=== PATIENT | male | born 1960 | race Hispanic/Latino ===

== ENCOUNTER 2018-05-01 20:39 | Inpatient (IN) | payer OTHER ==
[2018-05-01] MEDS ORDERED: NITRO-BID 2% TP ONE (20:55)
[2018-05-01] MEDS ORDERED: ZOFRAN IV ONE (20:55)
[2018-05-01] MEDS ORDERED: MORPHINE IV ONE (20:56)
--- NOTE | 2018-05-01 21:01 | Emergency Department Report ---
HPI - General Time Seen by Provider: 05/01/18 20:44 - HPI HPI: Room 17 The patient is a 57-year-old male presenting with a chief complaint of chest pain. The patient is currently at [facility] under 1013 for suicidal ideation/bipolar disorder. The patient states today between 17:30-18:30 he had "really bad heartburn". The patient states he felt a burning pain from the base of his neck to the xiphoid process. The patient states that last proximal 0.5 hours and then resolved. The patient states that 19:00 he then developed left-sided chest pain was throbbing in nature. Patient states he then developed pain in his left upper extremity and low back. The patient states his pain has been constant but improving since he was administered aspirin. The patient missed a shortness of breath, nausea/vomiting and diaphoresis with this pain. The patient was subsequent with transported to the ED with a sitter for further evaluation. The patient is his pain score of 6/10. The patient states he's never had a stress test or cardiac catheterization Location: [See above] Duration: [See above] Quality: Throbbing Severity: 6/10 Modifying factors: [see above] Context: [see above] Mode of transportation: [not driving] ED Past Medical Hx - Past Medical History Hx Hypertension: Yes Hx Diabetes: Yes Hx Seizures: Yes - Surgical History Hx Appendectomy: Yes Additional Surgical History: PEG tube placement and removal - Family History Family history: no significant - Social History Smoking Status: Current Every Day Smoker (1/2 pack per day) Substance Use Type: Methamphetamines (last used 1.5 weeks ago (smokes)) ED Review of Systems ROS: Stated complaint: CHEST PAIN Other details as noted in HPI Constitutional: diaphoresis Eyes: denies: eye pain ENT: denies: throat pain Respiratory: shortness of breath Cardiovascular: chest pain Endocrine: no symptoms reported Gastrointestinal: nausea, vomiting Genitourinary: denies: dysuria Musculoskeletal: back pain Neurological: headache Physical Exam - Physical Exam Physical Exam: GENERAL: The patient is well-developed well-nourished male lying on stretcher not appear to be in acute distress. [] HEENT: Normocephalic. Atraumatic. Extraocular motions are intact. Patient has moist mucous membranes. NECK: Supple. Trachea midline CHEST/LUNGS: Clear to auscultation. There is no respiratory distress noted. HEART/CARDIOVASCULAR: Regular. There is no tachycardia. There is no gallop rub or murmur. ABDOMEN: Abdomen is soft, nontender. Patient has normal bowel sounds. There is no abdominal distention. SKIN: There is no rash. There is no edema. There is no diaphoresis. NEURO: The patient is awake, alert, and oriented. The patient is cooperative. The patient has normal speech MUSCULOSKELETAL: There is no evidence of acute injury. ED Medical Decision Making - Lab Data Result diagrams: 05/01/18 21:23 05/01/18 21:23 Laboratory Tests 05/01/18 05/01/18 21:23 21:23 WBC 10.8 RBC 6.23 H Hgb 12.5 Hct 39.4 MCV 63 L MCH 20 L MCHC 32 RDW 16.3 H Plt Count 216 Sodium 134 L Potassium 4.1 Chloride 97.7 L Carbon Dioxide 22 Anion Gap 18 BUN 17 Creatinine 0.6 L Estimated GFR > 60 BUN/Creatinine Ratio 28 Glucose 152 H Calcium 9.1 Total Creatine Kinase 62 CK-MB (CK-2) 2.6 CK-MB (CK-2) Rel Index 4.1 H Troponin T < 0.010 - EKG Data -: EKG Interpreted by Me EKG shows normal: sinus rhythm Rate: normal - EKG Data When compared to previous EKG there are: previous EKG unavailable Interpretation: nonspecific ST-T wave joaquín (T-wave inversion in lead 3) - Radiology Data Radiology results: image reviewed (chest x-ray) interpreted by me: Chest x-ray-no focal infiltrates, no pneumothorax - Differential Diagnosis ACS, GERD, pericarditis Critical care attestation.: If time is entered above; I have spent that time in minutes in the direct care of this critically ill patient, excluding procedure time. ED Disposition Clinical Impression: Chest pain Disposition: OP ADMIT IP TO THIS HOSP Is pt being admited?: Yes Does the pt Need Aspirin: Yes Condition: Fair Instructions: Chest Pain (ED) Referrals: PRIMARY CARE,MD [Primary Care Provider] - 3-5 Days Time of Disposition: 22:05 (hospitalist paged (Dr. Candace Wesley))
[2018-05-01 21:51] LABS: Hematocrit 39.4 % (35.5-45.6); Hemoglobin 12.5 gm/dl (11.8-15.2); Mean Corpuscular HGB Conc 32 % (32-34); Platelet Count 216 K/mm3 (140-440); Red Blood Count 6.23 M/mm3 (3.65-5.03); Red Cell Distribution Width 16.3 % (13.2-15.2)
[2018-05-01 21:54] LABS: Creatine Kinase MB 2.6 ng/mL (0.0-4.0)
[2018-05-01 21:55] LABS: BUN/Creatinine Ratio 28; Blood Urea Nitrogen 17 mg/dL (9-20); Calcium 9.1 mg/dL (8.4-10.2); Hemolysis Index 11; Mean Corpuscular Hemoglobin 20 pg (28-32); Mean Corpuscular Volume 63 fl (84-94)
--- NOTE | 2018-05-01 22:26 | XRay Report ---
FINAL REPORT EXAM: XR CHEST 1V AP HISTORY: chest pain TECHNIQUE: AP portable view of the chest PRIORS: None. FINDINGS: Lines, tubes, and devices: N/A Lungs and pleura: Trachea is normal in position. Lungs are clear of infiltrate, pleural effusion, vascular congestion, or pneumothorax. Cardiomediastinal silhouette: Cardiac and mediastinal silhouettes are unremarkable. Other: Bony structures are intact. IMPRESSION: No acute cardiopulmonary process seen.
[2018-05-01 22:31] LABS: Basophils % (Manual) 0 % (0.0-1.8); Total Cells Counted 100
[2018-05-01 22:32] LABS: Hypochromasia 2+; Ovalocytes Few
--- NOTE | 2018-05-01 23:55 | History and Physical Report ---
History of Present Illness Date of examination: 05/01/18 History of present illness: This is a 57-year-old man with a history of hypertension, diabetes, seizure, bipolar was sent to the emergency room today from [place] for evaluation of chest pain. Pain is in the epigastric and left chest which she described as throbbing pain, constant, intensity 5/10, radiating to the left arm. Symptoms were relieved with nitroglycerin. Admits to nausea and vomiting, shortness of breath, diaphoresis, no palpitation. He never had a stress test. Admits to methamphetamine use Review of systems Constitutional: no weight loss, chills, fever Ears, eyes, nose, mouth and throat: no nasal congestion, no nasal discharge, no sinus pressure, no vision change, no red eye. Neck: No neck pain or rigidity. Cardiovascular: no palpitations Respiratory: no cough Gastrointestinal: no abdominal pain hematochezia Genitourinary : no frequency , no hematuria Musculoskeletal: no joint swelling or muscle ache Integumentary: no rash, no pruritis Neurological: no parathesias, no numbness, no focal weakness Endocrine: no cold or heat intolerance, no polyuria or polydipsia Hematologic/Lymphatic: no easy bruising, no easy bleeding, no gland swelling Allergic/Immunologic: no urticaria, no angioedema. PAST MEDICAL HISTORY:hypertension, diabetes, seizure, bipolar PAST SURGICAL HISTORY: Appendectomy SOCIAL HISTORY: Smoke a pack a day, methamphetamine use, no alcohol FAMILY HISTORY: Hypertension Medications and Allergies Allergies Allergy/AdvReac Type Severity Reaction Status Date / Time barbital Allergy Unknown Verified 05/01/18 21:20 Active Meds: Active Medications Enoxaparin Sodium (Lovenox) 30 mg SUB-Q QDAY SAVITA Exam - Physical Exam Narrative exam: Gen. appearance: Patient lying in bed, no apparent distress HEENT: Normocephalic, atraumatic, pupils equally round and reactive to light, extraocular movement intact, and no sclericterus,. No JVD or thyromegaly or nodule,neck supple, no carotid bruit ,mucous membranes moist, no exudate or erythema Heart: S1, S2, regular rate and rhythm Lungs: Clear bilaterally, breathing comfortable Abdomen: Positive bowel sounds, non-tender, nondistended, no organomegaly Extremity:no edema cyanosis, clubbing Skin: no rash, dry, warm Neuro: Oriented 3, cranial nerves II-12 intact, speech is fluent, motor and sensory intact - Constitutional Vitals: Temp Pulse Resp BP Pulse Ox 98 F 92 H 14 124/82 99 05/01/18 21:03 05/01/18 23:30 05/01/18 23:30 05/01/18 23:30 05/01/18 22:50 Results - Labs CBC & Chem 7: 05/01/18 21:23 05/01/18 21:23 Labs: Abnormal lab results 05/01/18 05/01/18 05/01/18 Range/Units 21:23 21:23 21:23 RBC 6.23 H (3.65-5.03) M/mm3 MCV 63 L (84-94) fl MCH 20 L (28-32) pg RDW 16.3 H (13.2-15.2) % Sodium 134 L (137-145) mmol/L Chloride 97.7 L (98-107) mmol/L Creatinine 0.6 L (0.8-1.5) mg/dL Glucose 152 H (75-100) mg/dL CK-MB (CK-2) Rel Index 4.1 H (0-4) Phenytoin 6.7 L (10.0-20.0) ug/mL - Imaging and Cardiology EKG: image reviewed Chest x-ray: report reviewed Assessment and Plan Assessment Chest pain, rule out ACS Hypertension Diabetes Seizure and bipolar Plan Admit to medicine Check cardiac enzymes, stress test Check fingersticks and initiate insulin sliding scale Start aspirin, DVT prophylaxis
[2018-05-02] MEDS ORDERED: TYLENOL PO PRN (01:01)
[2018-05-02] MEDS ORDERED: SODIUM CHLORIDE FLUSH SYRINGE 10 ML IV PRN (01:01)
[2018-05-02] MEDS ORDERED: ZOFRAN IV PRN (01:01)
[2018-05-02] MEDS ORDERED: D50W (25GM) Syringe IV PRN (01:03)
[2018-05-02 05:57] LABS: Basophils # (Auto) 0.1 K/mm3 (0.0-0.1); Basophils % (Auto) 0.7 % (0.0-1.8); Eosinophils # (Auto) 0.5 K/mm3 (0.0-0.4); Eosinophils % (Auto) 4.2 % (0.0-4.3); Hematocrit 40.2 % (35.5-45.6); Hemoglobin 12.7 gm/dl (11.8-15.2); Lymphocytes # (Auto) 4.5 K/mm3 (1.2-5.4); Lymphocytes % (Auto) 34.6 % (13.4-35.0); Mean Corpuscular HGB Conc 32 % (32-34); Monocytes # (Auto) 0.8 K/mm3 (0.0-0.8); Monocytes % (Auto) 6.2 % (0.0-7.3); Platelet Count 257 K/mm3 (140-440)
[2018-05-02 06:00] LABS: BUN/Creatinine Ratio 24; Blood Urea Nitrogen 17 mg/dL (9-20); Calcium 9.2 mg/dL (8.4-10.2); Hemolysis Index 2
[2018-05-02 06:10] LABS: Mean Corpuscular Hemoglobin 20 pg (28-32); Mean Corpuscular Volume 63 fl (84-94)
[2018-05-02] MEDS: MORPHINE IV PRN ×2 (06:31→21:55)
[2018-05-02 08:00] LABS: Creatine Kinase MB 2.8 ng/mL (0.0-4.0)
[2018-05-02] MEDS ORDERED: LEXISCAN IV ONE ×2 (08:59→09:03)
[2018-05-02] MEDS ORDERED: LOVENOX SUB-Q SCH (10:00)
[2018-05-02] MEDS: ASPIRIN PO SCH ×2 (10:55→12:28)
[2018-05-02] MEDS: HumaLOG SUB-Q SCH ×4 (10:55→22:01)
--- NOTE | 2018-05-02 11:52 | Progress Note ---
Assessment and Plan Assessment and plan: Bisi is a 57-year-old man from [facility] with a history of hypertension, diabetes mellitus type 2, seizure and bipolar Disorders was sent to the emergency room today from [place] for evaluation of chest pain. Admits to methamphetamine use * pCXR reported no acute cardiopulmonary process Chest pain, rule out ACS: stress test pending Hypertension: low salt diet Diabetes mellitus type 2: add ssi Seizure and bipolar: continue home medication Leukocyotosis, negative CXR, most likely reactive due to dehydration: get UA and blood cultures, start diet and liquids Morbid Obesity, BMI 46: consult Corporate Coordinator Anticipate d/c back to [place] tomorrow if WBC stable, negative stress test and negative UA, follow blood cultures also History Interval history: Patient was seen and examined. Follow-up on current diagnosis. Overnight uneventful. Patient denies any chest pain, shortness breath, nausea/vomiting or severe headaches. Imaging, nursing note, chart, labs and old chart reviewed. Discussed with patient. GEN: WDWN, NAD, Awake, Alert, Orientated HEENT: NCAT, EOMI, PERRL, OP Clear NECK: supple, no adenopathy, no thyromegaly, no JVD CVS/HEART: RRR, normal S1S2, pulses present bilaterally CHEST/LUNGS: CTA B, Symmetrical chest expansion, good air entry bilaterally GI/Abdomen: soft, NTND, good bowel sounds, no guarding or rebound /Bladder: no suprapubic tenderness, no CVA or paraspinal tenderness EXT/Skin: no c/c/e, no obvious rash MSK: FROM x 4 Neuro: CN 2-12 grossly intact, no new focal deficits Psych: calm Hospitalist Physical - Constitutional Vitals: Temp Pulse Resp BP Pulse Ox 98 F 72 27 H 129/66 99 05/01/18 21:03 05/02/18 05:11 05/02/18 00:00 05/02/18 00:00 05/01/18 22:50 Results - Labs CBC & Chem 7: 05/02/18 03:32 05/02/18 03:32 Labs: Laboratory Last Values WBC 13.0 K/mm3 (4.5-11.0) H 05/02/18 03:32 RBC 6.40 M/mm3 (3.65-5.03) H 05/02/18 03:32 Hgb 12.7 gm/dl (11.8-15.2) 05/02/18 03:32 Hct 40.2 % (35.5-45.6) 05/02/18 03:32 MCV 63 fl (84-94) L 05/02/18 03:32 MCH 20 pg (28-32) L 05/02/18 03:32 MCHC 32 % (32-34) 05/02/18 03:32 RDW 16.0 % (13.2-15.2) H 05/02/18 03:32 Plt Count 257 K/mm3 (140-440) 05/02/18 03:32 Lymph % (Auto) 34.6 % (13.4-35.0) 05/02/18 03:32 Howard % (Auto) 6.2 % (0.0-7.3) 05/02/18 03:32 Eos % (Auto) 4.2 % (0.0-4.3) 05/02/18 03:32 Baso % (Auto) 0.7 % (0.0-1.8) 05/02/18 03:32 Lymph # 4.5 K/mm3 (1.2-5.4) 05/02/18 03:32 Howard # 0.8 K/mm3 (0.0-0.8) 05/02/18 03:32 Eos # 0.5 K/mm3 (0.0-0.4) H 05/02/18 03:32 Baso # 0.1 K/mm3 (0.0-0.1) 05/02/18 03:32 Add Manual Diff Complete 05/01/18 21:23 Total Counted 100 05/01/18 21:23 Seg Neutrophils % 54.3 % (40.0-70.0) 05/02/18 03:32 Seg Neuts % (Manual) 63.0 % (40.0-70.0) 05/01/18 21:23 Band Neutrophils % 0 % 05/01/18 21:23 Lymphocytes % (Manual) 29.0 % (13.4-35.0) 05/01/18 21:23 Reactive Lymphs % (Man) 0 % 05/01/18 21:23 Monocytes % (Manual) 4.0 % (0.0-7.3) 05/01/18 21:23 Eosinophils % (Manual) 4.0 % (0.0-4.3) 05/01/18 21:23 Basophils % (Manual) 0 % (0.0-1.8) 05/01/18 21:23 Metamyelocytes % 0 % 05/01/18 21:23 Myelocytes % 0 % 05/01/18 21:23 Promyelocytes % 0 % 05/01/18 21:23 Blast Cells % 0 % 05/01/18 21:23 Nucleated RBC % Not Reportable 05/01/18 21:23 Seg Neutrophils # 7.0 K/mm3 (1.8-7.7) 05/02/18 03:32 Seg Neutrophils # Man 6.8 K/mm3 (1.8-7.7) 05/01/18 21:23 Band Neutrophils # 0.0 K/mm3 05/01/18 21:23 Lymphocytes # (Manual) 3.1 K/mm3 (1.2-5.4) 05/01/18 21:23 Abs React Lymphs (Man) 0.0 K/mm3 05/01/18 21:23 Monocytes # (Manual) 0.4 K/mm3 (0.0-0.8) 05/01/18 21:23 Eosinophils # (Manual) 0.4 K/mm3 (0.0-0.4) 05/01/18 21:23 Basophils # (Manual) 0.0 K/mm3 (0.0-0.1) 05/01/18 21:23 Metamyelocytes # 0.0 K/mm3 05/01/18 21:23 Myelocytes # 0.0 K/mm3 05/01/18 21:23 Promyelocytes # 0.0 K/mm3 05/01/18 21:23 Blast Cells # 0.0 K/mm3 05/01/18 21:23 WBC Morphology Not Reportable 05/01/18 21:23 Hypersegmented Neuts Not Reportable 05/01/18 21:23 Hyposegmented Neuts Not Reportable 05/01/18 21:23 Hypogranular Neuts Not Reportable 05/01/18 21:23 Smudge Cells Not Reportable 05/01/18 21:23 Toxic Granulation Not Reportable 05/01/18 21:23 Toxic Vacuolation Not Reportable 05/01/18 21:23 Dohle Bodies Not Reportable 05/01/18 21:23 Pelger-Huet Anomaly Not Reportable 05/01/18 21:23 Lauren Rods Not Reportable 05/01/18 21:23 Platelet Estimate Appears normal 05/01/18 21:23 Clumped Platelets Not Reportable 05/01/18 21:23 Plt Clumps, EDTA Not Reportable 05/01/18 21:23 Large Platelets Not Reportable 05/01/18 21:23 Giant Platelets Not Reportable 05/01/18 21:23 Platelet Satelliting Not Reportable 05/01/18 21:23 Plt Morphology Comment Not Reportable 05/01/18 21:23 RBC Morphology Not Reportable 05/01/18 21:23 Dimorphic RBCs Not Reportable 05/01/18 21:23 Polychromasia Not Reportable 05/01/18 21:23 Hypochromasia 2+ 05/01/18 21:23 Poikilocytosis Not Reportable 05/01/18 21:23 Anisocytosis Not Reportable 05/01/18 21:23 Microcytosis 2+ 05/01/18 21:23 Macrocytosis Not Reportable 05/01/18 21:23 Spherocytes Not Reportable 05/01/18 21:23 Pappenheimer Bodies Not Reportable 05/01/18 21:23 Sickle Cells Not Reportable 05/01/18 21:23 Target Cells Not Reportable 05/01/18 21:23 Tear Drop Cells Not Reportable 05/01/18 21:23 Ovalocytes Few 05/01/18 21:23 Helmet Cells Not Reportable 05/01/18 21:23 [place] Bodies Not Reportable 05/01/18 21:23 [place] Rings Not Reportable 05/01/18 21:23 [place] Cells Not Reportable 05/01/18 21:23 Bite Cells Not Reportable 05/01/18 21:23 Crenated Cell Not Reportable 05/01/18 21:23 Elliptocytes Not Reportable 05/01/18 21:23 Acanthocytes (Spur) Not Reportable 05/01/18 21:23 Rouleaux Not Reportable 05/01/18 21:23 Hemoglobin C Crystals Not Reportable 05/01/18 21:23 Schistocytes Not Reportable 05/01/18 21:23 Malaria parasites Not Reportable 05/01/18 21:23 Han Bodies Not Reportable 05/01/18 21:23 Hem Pathologist Commnt No 05/01/18 21:23 Sodium 139 mmol/L (137-145) 05/02/18 03:32 Potassium 4.0 mmol/L (3.6-5.0) 05/02/18 03:32 Chloride 100.9 mmol/L (98-107) 05/02/18 03:32 Carbon Dioxide 23 mmol/L (22-30) 05/02/18 03:32 Anion Gap 19 mmol/L 05/02/18 03:32 BUN 17 mg/dL (9-20) 05/02/18 03:32 Creatinine 0.7 mg/dL (0.8-1.5) L 05/02/18 03:32 Estimated GFR > 60 ml/min 05/02/18 03:32 BUN/Creatinine Ratio 24 % 05/02/18 03:32 Glucose 104 mg/dL (75-100) H 05/02/18 03:32 Calcium 9.2 mg/dL (8.4-10.2) 05/02/18 03:32 Total Creatine Kinase 60 units/L (55-170) 05/02/18 06:49 CK-MB (CK-2) 2.8 ng/mL (0.0-4.0) 05/02/18 06:49 CK-MB (CK-2) Rel Index 4.6 (0-4) H 05/02/18 06:49 Troponin T < 0.010 ng/mL (0.00-0.029) 05/02/18 06:49 Phenytoin 6.7 ug/mL (10.0-20.0) L 05/01/18 21:23
[2018-05-02] MEDS: LOVENOX SUB-Q SCH (12:28)
[2018-05-02] MEDS: SODIUM CHLORIDE FLUSH SYRINGE 10 ML IV SCH ×2 (12:29→21:56)
--- NOTE | 2018-05-02 13:26 | Treadmill Report ---
THALLIUM STRESS TEST REPORT LEFT VENTRICLE: Left ventricular chamber size is within normal spread. Perfusion studies demonstrates somewhat heterogeneous uptake of the tracer in all segments, but no significant perfusion defects identified. Gated analysis demonstrates normal left ventricular systolic function, ejection fraction 62%. CONCLUSION: Normal myocardial perfusion study. JOB# [id number] CA/NTS
[2018-05-02 15:54] LABS: Color,Urine Yellow (Yellow)
[2018-05-02 15:55] LABS: Bilirubin,Urine Negative (Negative); Blood,Urine Negative (Negative); Protein,Urine <15 mg/dL mg/dL (Negative); Urobilinogen,Urine < 2.0 mg/dL (<2.0)
[2018-05-02 16:04] LABS: Mucus,Urine FEW /HPF
[2018-05-03] MEDS: HumaLOG SUB-Q SCH ×4 (07:44→22:00)
[2018-05-03] MEDS: ASPIRIN PO SCH (10:40)
[2018-05-03] MEDS: SODIUM CHLORIDE FLUSH SYRINGE 10 ML IV SCH ×2 (10:41→22:01)
--- NOTE | 2018-05-03 12:07 | Progress Note ---
Assessment and Plan Assessment and plan: Bisi is a 57-year-old man from [facility] with a history of hypertension, diabetes mellitus type 2, seizure and Bipolar Disorders was sent to the emergency room today from [place] for evaluation of chest pain. Admits to methamphetamine use * pCXR reported no acute cardiopulmonary process Chest pain, rule out ACS: stress test pending Hypertension: low salt diet Diabetes mellitus type 2: add ssi Seizure and bipolar: continue home medication Leukocyotosis, negative CXR, most likely reactive due to dehydration: get UA and blood cultures, start diet and liquids Morbid Obesity, BMI 46: consult Breaster Anticipate d/c back to [place] tomorrow if WBC stable, negative stress test and negative UA, follow blood cultures also still 1013, consulted Mental health UA unremarkable Labs pending History Interval history: Patient was seen and examined. Follow-up on current diagnosis. Overnight uneventful. Patient denies any chest pain, shortness breath, nausea/vomiting or severe headaches. Imaging, nursing note, chart, labs and old chart reviewed. Discussed with patient. Hospitalist Physical - Physical exam Narrative exam: GEN: WDWN, NAD, Awake, Alert, Orientated HEENT: NCAT, EOMI, PERRL, OP Clear NECK: supple, no adenopathy, no thyromegaly, no JVD CVS/HEART: RRR, normal S1S2, pulses present bilaterally CHEST/LUNGS: CTA B, Symmetrical chest expansion, good air entry bilaterally GI/Abdomen: soft, NTND, good bowel sounds, no guarding or rebound /Bladder: no suprapubic tenderness, no CVA or paraspinal tenderness EXT/Skin: no c/c/e, no obvious rash MSK: FROM x 4 Neuro: CN 2-12 grossly intact, no new focal deficits Psych: calm - Constitutional Vitals: Temp Pulse Resp BP Pulse Ox 98.2 F 78 20 174/82 97 05/03/18 07:40 05/03/18 04:19 05/03/18 07:40 05/03/18 07:40 05/03/18 04:19 Results - Labs CBC & Chem 7: 05/02/18 03:32 05/02/18 03:32 Labs: Laboratory Last Values WBC 13.0 K/mm3 (4.5-11.0) H 05/02/18 03:32 RBC 6.40 M/mm3 (3.65-5.03) H 05/02/18 03:32 Hgb 12.7 gm/dl (11.8-15.2) 05/02/18 03:32 Hct 40.2 % (35.5-45.6) 05/02/18 03:32 MCV 63 fl (84-94) L 05/02/18 03:32 MCH 20 pg (28-32) L 05/02/18 03:32 MCHC 32 % (32-34) 05/02/18 03:32 RDW 16.0 % (13.2-15.2) H 05/02/18 03:32 Plt Count 257 K/mm3 (140-440) 05/02/18 03:32 Lymph % (Auto) 34.6 % (13.4-35.0) 05/02/18 03:32 [place] % (Auto) 6.2 % (0.0-7.3) 05/02/18 03:32 Eos % (Auto) 4.2 % (0.0-4.3) 05/02/18 03:32 Baso % (Auto) 0.7 % (0.0-1.8) 05/02/18 03:32 Lymph # 4.5 K/mm3 (1.2-5.4) 05/02/18 03:32 Wells # 0.8 K/mm3 (0.0-0.8) 05/02/18 03:32 Eos # 0.5 K/mm3 (0.0-0.4) H 05/02/18 03:32 Baso # 0.1 K/mm3 (0.0-0.1) 05/02/18 03:32 Add Manual Diff Complete 05/01/18 21:23 Total Counted 100 05/01/18 21:23 Seg Neutrophils % 54.3 % (40.0-70.0) 05/02/18 03:32 Seg Neuts % (Manual) 63.0 % (40.0-70.0) 05/01/18 21:23 Band Neutrophils % 0 % 05/01/18 21:23 Lymphocytes % (Manual) 29.0 % (13.4-35.0) 05/01/18 21:23 Reactive Lymphs % (Man) 0 % 05/01/18 21:23 Monocytes % (Manual) 4.0 % (0.0-7.3) 05/01/18 21:23 Eosinophils % (Manual) 4.0 % (0.0-4.3) 05/01/18 21:23 Basophils % (Manual) 0 % (0.0-1.8) 05/01/18 21:23 Metamyelocytes % 0 % 05/01/18 21:23 Myelocytes % 0 % 05/01/18 21:23 Promyelocytes % 0 % 05/01/18 21:23 Blast Cells % 0 % 05/01/18 21:23 Nucleated RBC % Not Reportable 05/01/18 21:23 Seg Neutrophils # 7.0 K/mm3 (1.8-7.7) 05/02/18 03:32 Seg Neutrophils # Man 6.8 K/mm3 (1.8-7.7) 05/01/18 21:23 Band Neutrophils # 0.0 K/mm3 05/01/18 21:23 Lymphocytes # (Manual) 3.1 K/mm3 (1.2-5.4) 05/01/18 21:23 Abs React Lymphs (Man) 0.0 K/mm3 05/01/18 21:23 Monocytes # (Manual) 0.4 K/mm3 (0.0-0.8) 05/01/18 21:23 Eosinophils # (Manual) 0.4 K/mm3 (0.0-0.4) 05/01/18 21:23 Basophils # (Manual) 0.0 K/mm3 (0.0-0.1) 05/01/18 21:23 Metamyelocytes # 0.0 K/mm3 05/01/18 21:23 Myelocytes # 0.0 K/mm3 05/01/18 21:23 Promyelocytes # 0.0 K/mm3 05/01/18 21:23 Blast Cells # 0.0 K/mm3 05/01/18 21:23 WBC Morphology Not Reportable 05/01/18 21:23 Hypersegmented Neuts Not Reportable 05/01/18 21:23 Hyposegmented Neuts Not Reportable 05/01/18 21:23 Hypogranular Neuts Not Reportable 05/01/18 21:23 Smudge Cells Not Reportable 05/01/18 21:23 Toxic Granulation Not Reportable 05/01/18 21:23 Toxic Vacuolation Not Reportable 05/01/18 21:23 Dohle Bodies Not Reportable 05/01/18 21:23 Pelger-Huet Anomaly Not Reportable 05/01/18 21:23 Lauren Rods Not Reportable 05/01/18 21:23 Platelet Estimate Appears normal 05/01/18 21:23 Clumped Platelets Not Reportable 05/01/18 21:23 Plt Clumps, EDTA Not Reportable 05/01/18 21:23 Large Platelets Not Reportable 05/01/18 21:23 Giant Platelets Not Reportable 05/01/18 21:23 Platelet Satelliting Not Reportable 05/01/18 21:23 Plt Morphology Comment Not Reportable 05/01/18 21:23 RBC Morphology Not Reportable 05/01/18 21:23 Dimorphic RBCs Not Reportable 05/01/18 21:23 Polychromasia Not Reportable 05/01/18 21:23 Hypochromasia 2+ 05/01/18 21:23 Poikilocytosis Not Reportable 05/01/18 21:23 Anisocytosis Not Reportable 05/01/18 21:23 Microcytosis 2+ 05/01/18 21:23 Macrocytosis Not Reportable 05/01/18 21:23 Spherocytes Not Reportable 05/01/18 21:23 Pappenheimer Bodies Not Reportable 05/01/18 21:23 Sickle Cells Not Reportable 05/01/18 21:23 Target Cells Not Reportable 05/01/18 21:23 Tear Drop Cells Not Reportable 05/01/18 21:23 Ovalocytes Few 05/01/18 21:23 Helmet Cells Not Reportable 05/01/18 21:23 [place] Bodies Not Reportable 05/01/18 21:23 [place] Rings Not Reportable 05/01/18 21:23 [place] Cells Not Reportable 05/01/18 21:23 Bite Cells Not Reportable 05/01/18 21:23 Crenated Cell Not Reportable 05/01/18 21:23 Elliptocytes Not Reportable 05/01/18 21:23 Acanthocytes (Spur) Not Reportable 05/01/18 21:23 Rouleaux Not Reportable 05/01/18 21:23 Hemoglobin C Crystals Not Reportable 05/01/18 21:23 Schistocytes Not Reportable 05/01/18 21:23 Malaria parasites Not Reportable 05/01/18 21:23 Han Bodies Not Reportable 05/01/18 21:23 Hem Pathologist Commnt No 05/01/18 21:23 Sodium 139 mmol/L (137-145) 05/02/18 03:32 Potassium 4.0 mmol/L (3.6-5.0) 05/02/18 03:32 Chloride 100.9 mmol/L (98-107) 05/02/18 03:32 Carbon Dioxide 23 mmol/L (22-30) 05/02/18 03:32 Anion Gap 19 mmol/L 05/02/18 03:32 BUN 17 mg/dL (9-20) 05/02/18 03:32 Creatinine 0.7 mg/dL (0.8-1.5) L 05/02/18 03:32 Estimated GFR > 60 ml/min 05/02/18 03:32 BUN/Creatinine Ratio 24 % 05/02/18 03:32 Glucose 104 mg/dL (75-100) H 05/02/18 03:32 POC Glucose 126 (70-105) H 05/03/18 06:10 Calcium 9.2 mg/dL (8.4-10.2) 05/02/18 03:32 Total Creatine Kinase 60 units/L (55-170) 05/02/18 06:49 CK-MB (CK-2) 2.8 ng/mL (0.0-4.0) 05/02/18 06:49 CK-MB (CK-2) Rel Index 4.6 (0-4) H 05/02/18 06:49 Troponin T < 0.010 ng/mL (0.00-0.029) 05/02/18 06:49 Urine Color Yellow (Yellow) 05/02/18 Unknown Urine Turbidity Clear (Clear) 05/02/18 Unknown Urine pH 5.0 (5.0-7.0) 05/02/18 Unknown Ur Specific [place] 1.020 (1.003-1.030) 05/02/18 Unknown Urine Protein <15 mg/dl mg/dL (Negative) 05/02/18 Unknown Urine Glucose (UA) Negative mg/dL (Negative) 05/02/18 Unknown Urine Ketones Negative mg/dL (Negative) 05/02/18 Unknown Urine Blood Negative (Negative) 05/02/18 Unknown Urine Nitrite Negative (Negative) 05/02/18 Unknown Urine Bilirubin Negative (Negative) 05/02/18 Unknown Urine Urobilinogen < 2.0 mg/dL (<2.0) 05/02/18 Unknown Ur Leukocyte Esterase Small (Negative) 05/02/18 Unknown Urine WBC (Auto) 3.0 /HPF (0.0-6.0) 05/02/18 Unknown Urine RBC (Auto) 1.0 /HPF (0.0-6.0) 05/02/18 Unknown U Epithel Cells (Auto) < 1.0 /HPF (0-13.0) 05/02/18 Unknown Urine Mucus Few /HPF 05/02/18 Unknown Phenytoin 6.7 ug/mL (10.0-20.0) L 05/01/18 21:23
[2018-05-03 13:18] LABS: Hematocrit 36.2 % (35.5-45.6); Hemoglobin 11.6 gm/dl (11.8-15.2); Mean Corpuscular HGB Conc 32 % (32-34); Mean Corpuscular Hemoglobin 20 pg (28-32); Mean Corpuscular Volume 63 fl (84-94); Platelet Count 203 K/mm3 (140-440); Red Blood Count 5.77 M/mm3 (3.65-5.03)
[2018-05-03 13:23] LABS: BUN/Creatinine Ratio 20; Blood Urea Nitrogen 12 mg/dL (9-20); Calcium 8.8 mg/dL (8.4-10.2); Hemolysis Index 5
[2018-05-03] MEDS: MORPHINE IV PRN (15:37)
[2018-05-03] MEDS: LOVENOX SUB-Q SCH (15:40)
[2018-05-04] MEDS ORDERED: AMBIEN PO ONE (00:20)
--- NOTE | 2018-05-04 08:43 | Progress Note ---
Assessment and Plan Assessment and plan: Bisi is a 57-year-old man from [facility] with a history of hypertension, diabetes mellitus type 2, seizure and Bipolar Disorders was sent to the emergency room today from [facility] for evaluation of chest pain. Admits to methamphetamine use * pCXR reported no acute cardiopulmonary process Chest pain, rule out ACS: stress test pending Accelerated Hypertension: low salt diet Diabetes mellitus type 2: add ssi Seizure and bipolar: continue home medication SI on 1013: Mental health recommendation pending Leukocyotosis, negative CXR, most likely reactive due to dehydration, resolved Morbid Obesity, BMI 46: consult Tube Teller BP too high today for discharge, start Norvasc and give IV labetalol prn History Interval history: Patient was seen and examined. Follow-up on current diagnosis. Overnight uneventful. Patient denies any chest pain, shortness breath, nausea/vomiting or severe headaches. Imaging, nursing note, chart, labs and old chart reviewed. Discussed with patient. Hospitalist Physical - Physical exam Narrative exam: GEN: WDWN, NAD, Awake, Alert, Orientated HEENT: NCAT, EOMI, PERRL, OP Clear NECK: supple, no adenopathy, no thyromegaly, no JVD CVS/HEART: RRR, normal S1S2, pulses present bilaterally CHEST/LUNGS: CTA B, Symmetrical chest expansion, good air entry bilaterally GI/Abdomen: soft, NTND, good bowel sounds, no guarding or rebound /Bladder: no suprapubic tenderness, no CVA or paraspinal tenderness EXT/Skin: no c/c/e, no obvious rash MSK: FROM x 4 Neuro: CN 2-12 grossly intact, no new focal deficits Psych: calm - Constitutional Vitals: Temp Pulse Resp BP Pulse Ox 98.4 F 99 H 20 195/129 98 05/04/18 08:24 05/04/18 08:24 05/04/18 08:24 05/04/18 08:24 05/04/18 08:24 Results - Labs CBC & Chem 7: 05/03/18 12:51 05/03/18 12:51 Labs: Laboratory Last Values WBC 8.2 K/mm3 (4.5-11.0) 05/03/18 12:51 RBC 5.77 M/mm3 (3.65-5.03) H 05/03/18 12:51 Hgb 11.6 gm/dl (11.8-15.2) L 05/03/18 12:51 Hct 36.2 % (35.5-45.6) 05/03/18 12:51 MCV 63 fl (84-94) L 05/03/18 12:51 MCH 20 pg (28-32) L 05/03/18 12:51 MCHC 32 % (32-34) 05/03/18 12:51 RDW 16.0 % (13.2-15.2) H 05/03/18 12:51 Plt Count 203 K/mm3 (140-440) 05/03/18 12:51 Lymph % (Auto) 34.6 % (13.4-35.0) 05/02/18 03:32 Gaines % (Auto) 6.2 % (0.0-7.3) 05/02/18 03:32 Eos % (Auto) 4.2 % (0.0-4.3) 05/02/18 03:32 Baso % (Auto) 0.7 % (0.0-1.8) 05/02/18 03:32 Lymph # 4.5 K/mm3 (1.2-5.4) 05/02/18 03:32 Gaines # 0.8 K/mm3 (0.0-0.8) 05/02/18 03:32 Eos # 0.5 K/mm3 (0.0-0.4) H 05/02/18 03:32 Baso # 0.1 K/mm3 (0.0-0.1) 05/02/18 03:32 Add Manual Diff Complete 05/01/18 21:23 Total Counted 100 05/01/18 21:23 Seg Neutrophils % 54.3 % (40.0-70.0) 05/02/18 03:32 Seg Neuts % (Manual) 63.0 % (40.0-70.0) 05/01/18 21:23 Band Neutrophils % 0 % 05/01/18 21:23 Lymphocytes % (Manual) 29.0 % (13.4-35.0) 05/01/18 21:23 Reactive Lymphs % (Man) 0 % 05/01/18 21:23 Monocytes % (Manual) 4.0 % (0.0-7.3) 05/01/18 21:23 Eosinophils % (Manual) 4.0 % (0.0-4.3) 05/01/18 21:23 Basophils % (Manual) 0 % (0.0-1.8) 05/01/18 21:23 Metamyelocytes % 0 % 05/01/18 21:23 Myelocytes % 0 % 05/01/18 21:23 Promyelocytes % 0 % 05/01/18 21:23 Blast Cells % 0 % 05/01/18 21:23 Nucleated RBC % Not Reportable 05/01/18 21:23 Seg Neutrophils # 7.0 K/mm3 (1.8-7.7) 05/02/18 03:32 Seg Neutrophils # Man 6.8 K/mm3 (1.8-7.7) 05/01/18 21:23 Band Neutrophils # 0.0 K/mm3 05/01/18 21:23 Lymphocytes # (Manual) 3.1 K/mm3 (1.2-5.4) 05/01/18 21:23 Abs React Lymphs (Man) 0.0 K/mm3 05/01/18 21:23 Monocytes # (Manual) 0.4 K/mm3 (0.0-0.8) 05/01/18 21:23 Eosinophils # (Manual) 0.4 K/mm3 (0.0-0.4) 05/01/18 21:23 Basophils # (Manual) 0.0 K/mm3 (0.0-0.1) 05/01/18 21:23 Metamyelocytes # 0.0 K/mm3 05/01/18 21:23 Myelocytes # 0.0 K/mm3 05/01/18 21:23 Promyelocytes # 0.0 K/mm3 05/01/18 21:23 Blast Cells # 0.0 K/mm3 05/01/18 21:23 WBC Morphology Not Reportable 05/01/18 21:23 Hypersegmented Neuts Not Reportable 05/01/18 21:23 Hyposegmented Neuts Not Reportable 05/01/18 21:23 Hypogranular Neuts Not Reportable 05/01/18 21:23 Smudge Cells Not Reportable 05/01/18 21:23 Toxic Granulation Not Reportable 05/01/18 21:23 Toxic Vacuolation Not Reportable 05/01/18 21:23 Dohle Bodies Not Reportable 05/01/18 21:23 Pelger-Huet Anomaly Not Reportable 05/01/18 21:23 Lauren Rods Not Reportable 05/01/18 21:23 Platelet Estimate Appears normal 05/01/18 21:23 Clumped Platelets Not Reportable 05/01/18 21:23 Plt Clumps, EDTA Not Reportable 05/01/18 21:23 Large Platelets Not Reportable 05/01/18 21:23 Giant Platelets Not Reportable 05/01/18 21:23 Platelet Satelliting Not Reportable 05/01/18 21:23 Plt Morphology Comment Not Reportable 05/01/18 21:23 RBC Morphology Not Reportable 05/01/18 21:23 Dimorphic RBCs Not Reportable 05/01/18 21:23 Polychromasia Not Reportable 05/01/18 21:23 Hypochromasia 2+ 05/01/18 21:23 Poikilocytosis Not Reportable 05/01/18 21:23 Anisocytosis Not Reportable 05/01/18 21:23 Microcytosis 2+ 05/01/18 21:23 Macrocytosis Not Reportable 05/01/18 21:23 Spherocytes Not Reportable 05/01/18 21:23 Pappenheimer Bodies Not Reportable 05/01/18 21:23 Sickle Cells Not Reportable 05/01/18 21:23 Target Cells Not Reportable 05/01/18 21:23 Tear Drop Cells Not Reportable 05/01/18 21:23 Ovalocytes Few 05/01/18 21:23 Helmet Cells Not Reportable 05/01/18 21:23 [place] Bodies Not Reportable 05/01/18 21:23 [place] Rings Not Reportable 05/01/18 21:23 Katie Cells Not Reportable 05/01/18 21:23 Bite Cells Not Reportable 05/01/18 21:23 Crenated Cell Not Reportable 05/01/18 21:23 Elliptocytes Not Reportable 05/01/18 21:23 Acanthocytes (Spur) Not Reportable 05/01/18 21:23 Rouleaux Not Reportable 05/01/18 21:23 Hemoglobin C Crystals Not Reportable 05/01/18 21:23 Schistocytes Not Reportable 05/01/18 21:23 Malaria parasites Not Reportable 05/01/18 21:23 Han Bodies Not Reportable 05/01/18 21:23 Hem Pathologist Commnt No 05/01/18 21:23 Sodium 138 mmol/L (137-145) 05/03/18 12:51 Potassium 4.0 mmol/L (3.6-5.0) 05/03/18 12:51 Chloride 99.3 mmol/L (98-107) 05/03/18 12:51 Carbon Dioxide 27 mmol/L (22-30) 05/03/18 12:51 Anion Gap 16 mmol/L 05/03/18 12:51 BUN 12 mg/dL (9-20) 05/03/18 12:51 Creatinine 0.6 mg/dL (0.8-1.5) L 05/03/18 12:51 Estimated GFR > 60 ml/min 05/03/18 12:51 BUN/Creatinine Ratio 20 % 05/03/18 12:51 Glucose 187 mg/dL (75-100) H 05/03/18 12:51 POC Glucose 170 (70-105) H 05/04/18 06:54 Calcium 8.8 mg/dL (8.4-10.2) 05/03/18 12:51 Total Creatine Kinase 60 units/L (55-170) 05/02/18 06:49 CK-MB (CK-2) 2.8 ng/mL (0.0-4.0) 05/02/18 06:49 CK-MB (CK-2) Rel Index 4.6 (0-4) H 05/02/18 06:49 Troponin T < 0.010 ng/mL (0.00-0.029) 05/02/18 06:49 Urine Color Yellow (Yellow) 05/02/18 Unknown Urine Turbidity Clear (Clear) 05/02/18 Unknown Urine pH 5.0 (5.0-7.0) 05/02/18 Unknown Ur Specific [place] 1.020 (1.003-1.030) 05/02/18 Unknown Urine Protein <15 mg/dl mg/dL (Negative) 05/02/18 Unknown Urine Glucose (UA) Negative mg/dL (Negative) 05/02/18 Unknown Urine Ketones Negative mg/dL (Negative) 05/02/18 Unknown Urine Blood Negative (Negative) 05/02/18 Unknown Urine Nitrite Negative (Negative) 05/02/18 Unknown Urine Bilirubin Negative (Negative) 05/02/18 Unknown Urine Urobilinogen < 2.0 mg/dL (<2.0) 05/02/18 Unknown Ur Leukocyte Esterase Small (Negative) 05/02/18 Unknown Urine WBC (Auto) 3.0 /HPF (0.0-6.0) 05/02/18 Unknown Urine RBC (Auto) 1.0 /HPF (0.0-6.0) 05/02/18 Unknown U Epithel Cells (Auto) < 1.0 /HPF (0-13.0) 05/02/18 Unknown Urine Mucus Few /HPF 05/02/18 Unknown Phenytoin 6.7 ug/mL (10.0-20.0) L 05/01/18 21:23
[2018-05-04] MEDS ORDERED: NORMODYNE IV PRN (09:00)
[2018-05-04] MEDS: LOVENOX SUB-Q SCH (10:20)
[2018-05-04] MEDS: NORVASC PO SCH (10:20)
[2018-05-04] MEDS: ASPIRIN PO SCH (10:21)
[2018-05-04] MEDS: HumaLOG SUB-Q SCH ×4 (10:21→23:03)
[2018-05-04] MEDS: SODIUM CHLORIDE FLUSH SYRINGE 10 ML IV SCH ×2 (10:22→23:07)
[2018-05-04] MEDS ORDERED: AMBIEN PO PRN (11:08)
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
[2018-05-04] MEDS: AMBIEN PO PRN (23:03)
[2018-05-04] MEDS: ABILIFY PO SCH (23:03)
[2018-05-05 06:10] LABS: Hematocrit 37.6 % (35.5-45.6); Mean Corpuscular HGB Conc 32 % (32-34); Platelet Count 210 K/mm3 (140-440); Red Blood Count 5.93 M/mm3 (3.65-5.03); Red Cell Distribution Width 15.9 % (13.2-15.2)
[2018-05-05 06:17] LABS: Mean Corpuscular Hemoglobin 20 pg (28-32); Mean Corpuscular Volume 63 fl (84-94)
[2018-05-05 06:44] LABS: BUN/Creatinine Ratio 18; Blood Urea Nitrogen 9 mg/dL (9-20); Calcium 9.1 mg/dL (8.4-10.2); Hemolysis Index 20
[2018-05-05] MEDS: HumaLOG SUB-Q SCH ×4 (10:15→22:41)
[2018-05-05] MEDS: LOVENOX SUB-Q SCH (10:39)
[2018-05-05] MEDS: NORVASC PO SCH (10:39)
[2018-05-05] MEDS: ASPIRIN PO SCH (10:39)
[2018-05-05] MEDS: SODIUM CHLORIDE FLUSH SYRINGE 10 ML IV SCH ×2 (10:40→22:36)
--- NOTE | 2018-05-05 13:14 | Progress Note ---
Subjective - Reason for Consult Consult date: 05/05/18 Reason for consult: Psychiatry Follow-up - Chief Complaint Chief complaint: 57-year-old white male who presents with a chief complaint of chest pain. The patient was transferred from [facility] under 1013 for SI/HI's. The patient reports on 10/28/2017 he was laid off from his job. Since then patient has not been able to find employment, his car was repossessed, and he's homeless. Today the patient is calm and cooperative during the assessment. He stated that he was "upset" when he mentioned SI's when he seen at [facility]. Per collateral information from his daughter Analisa Villalba at , the patient have been to 2 mental health facilities recently for stabilization. She stated that the patient has endorsed SI's in the past, but have never attempted suicide. She stated that her father would benefit from IOP when discharged. He denies SI/HI's and AVH's. He denies any side effects of his medication. Mental Status Exam - Vital signs Last Vital Signs Temp 97.4 F L 05/05/18 08:42 Pulse 83 05/05/18 08:42 Resp 20 05/05/18 08:42 BP 149/97 05/05/18 08:42 Pulse Ox 94 05/05/18 08:42 - Exam Narrative exam: MSE: Appearance: calm, cooperative Behavior: regular eye contact Speech: pressured speech Mood: "okay" Affect: congruent to mood Thought Process: circumstantial Thought Content: denies SI/HI's and AVH's Motor Activity: ambulatory Cognition: A/O x 3 Insight: variable Judgment: variable Assessment and Plan Impression: Unspecified Mood DO. Today the patient is cooperative during the assessment. DDx: R/O Bipolar DO with psychosis Recommendation/Plan: Reevaluate 1013 in 24 hours determine proper dispo. Continue Abilify 5 mg O QHS for mood. Discussed possible metabolic side effects of Abilify with patient.
--- NOTE | 2018-05-05 14:04 | Progress Note ---
Assessment and Plan A/p Chest pain, rule out ACS: stress test negative by my interpretation.No official report Accelerated Hypertension: Better controlled Diabetes mellitus type 2: add ssi Seizure and bipolar: continue home medication SI on 1013: Mental health recommendation pending Leukocyotosis, negative CXR, most likely reactive due to dehydration, resolved Morbid Obesity, BMI 46: consult Emergency Department Rn Ready for discharge if OK with psych Subjective Date of service: 05/05/18 Principal diagnosis: Chest pain r/o IN Interval history: Doing well Objective - Constitutional Vitals: Vital Signs - 12hr 05/05/18 08:42 Temperature 97.4 F L Pulse Rate 83 Respiratory 20 Rate Blood Pressure 149/97 O2 Sat by Pulse 94 Oximetry General appearance: Present: no acute distress, well-nourished - EENT Eyes: PERRL, EOM intact ENT: hearing intact, clear oral mucosa Ears: bilateral: normal - Neck Neck: supple, normal ROM - Respiratory Respiratory effort: normal Respiratory: bilateral: CTA - Breasts Breasts: normal - Cardiovascular Rhythm: regular Heart Sounds: Present: S1 & S2. Absent: gallop, rub Extremities: pulses intact, No edema, normal color, Full ROM - Gastrointestinal General gastrointestinal: Present: soft, non-tender, non-distended, normal bowel sounds - Genitourinary Male genitourinary: normal - Integumentary Integumentary: clear, warm, dry - Musculoskeletal Musculoskeletal: 1, strength equal bilaterally - Neurologic Neurologic: moves all extremities - Psychiatric Psychiatric: memory intact, appropriate mood/affect, intact judgment & insight - Labs CBC & Chem 7: 05/05/18 05:36 05/05/18 05:36 Labs: Abnormal lab results 05/04/18 05/04/18 05/05/18 Range/Units 16:49 22:47 05:36 RBC 5.93 H (3.65-5.03) M/mm3 MCV 63 L (84-94) fl MCH 20 L (28-32) pg RDW 15.9 H (13.2-15.2) % Creatinine (0.8-1.5) mg/dL Glucose (75-100) mg/dL POC Glucose 162 H 166 H (70-105) 05/05/18 05/05/18 Range/Units 05:36 06:30 RBC (3.65-5.03) M/mm3 MCV (84-94) fl MCH (28-32) pg RDW (13.2-15.2) % Creatinine 0.5 L (0.8-1.5) mg/dL Glucose 111 H (75-100) mg/dL POC Glucose 107 H (70-105)
[2018-05-05] MEDS: XANAX PO SCH (14:35)
[2018-05-05] MEDS: BACTRIM DS PO SCH ×2 (14:35→22:35)
[2018-05-05] MEDS: ABILIFY PO SCH (22:35)
[2018-05-05] MEDS: AMBIEN PO PRN (22:35)
[2018-05-05] MEDS: MORPHINE IV PRN (22:36)
[2018-05-06] MEDS: XANAX PO SCH ×2 (00:55→10:07)
[2018-05-06] MEDS ORDERED: GLUCOPHAGE PO SCH (08:00)
[2018-05-06] MEDS: HumaLOG SUB-Q SCH ×2 (08:26→12:37)
[2018-05-06] MEDS ORDERED: NORVASC PO SCH (10:00)
[2018-05-06] MEDS ORDERED: GEODON PO SCH (10:00)
[2018-05-06] MEDS: LOVENOX SUB-Q SCH (10:06)
[2018-05-06] MEDS: BACTRIM DS PO SCH (10:07)
[2018-05-06] MEDS: SODIUM CHLORIDE FLUSH SYRINGE 10 ML IV SCH (10:07)
[2018-05-06] MEDS: ASPIRIN PO SCH (10:07)
[2018-05-06 12:08] VITALS: BP 114/76
--- NOTE | 2018-05-06 12:44 | Progress Note ---
Subjective - Reason for Consult Consult date: 05/06/18 Reason for consult: Psychiatry Follow-up - Chief Complaint Chief complaint: 'I plant to get my life together" 57-year-old white male who presents with a chief complaint of chest pain. The patient was transferred from [facility] under 1013 for SI/HI's. The patient reports on 10/28/2017 he was laid off from his job. Since then patient has not been able to find employment, his car was repossessed, and he's homeless. Today the patient is calm and cooperative during the assessment. He stated that he plan to get his life together. He stated that he will follow up with outpatient psy services. He denies SI/HI's and AVH's. He denies any side effects of his medications. Mental Status Exam - Vital signs Last Vital Signs Temp 97.7 F 05/06/18 12:04 Pulse 96 H 05/06/18 12:00 Resp 18 05/06/18 12:04 BP 114/76 05/06/18 12:04 Pulse Ox 96 05/06/18 12:00 - Exam Narrative exam: MSE: Appearance: calm, cooperative Behavior: regular eye contact Speech: regular rate and tone Mood: "well" Affect: congruent to mood Thought Process: linear Thought Content: denies SI/HI's and AVH's Motor Activity: ambulatory Cognition: A/O x 3 Insight: appropriate Judgment: appropriate Assessment and Plan Impression: Unspecified Mood DO. Today the patient is cooperative during the assessment. The patient is no threat to self. DDx: R/O Bipolar DO with psychosis Recommendation/Plan: Rescind 1013. Continue Abilify 5 mg PO HS for mood. Discussed possible metabolic side effects of Abilify with patient. The patient can follow up with [facility] for outpatient psy services. Discussed generalized coping skills with the patient.
--- NOTE | 2018-05-06 14:17 | Discharge Summary ---
Providers - Providers Date of Admission: 05/01/18 23:50 Date of discharge: 05/06/18 Attending physician: LINA DEAN 05/03/18 12:07 Consult to Mental Health [CONS] Urgent Reason For Exam: psych Place consult to:: engineering illustrator nursing department chairperson Notified:: awaiting call back Comment:: fax to [phone] Primary care physician: WIRE SPOOLER Hospitalization Condition: Fair Hospital course: Assessment and Plan A/p Chest pain, rule out ACS: stress test negative ---official report Accelerated Hypertension: Better controlled Diabetes mellitus type 2: add ssi Seizure and bipolar: continue home medication SI on 1013: Revoked Leukocyotosis, negative CXR, most likely reactive due to dehydration, resolved Morbid Obesity, BMI 46: counselled Ready for discharge Psych-cleared Disposition: DC-01 TO HOME OR SELFCARE Core Measure Documentation - Palliative Care Palliative Care/ Comfort Measures: Not Applicable - Core Measures Any of the following diagnoses?: none Exam - Constitutional Vitals: Temp Pulse Resp BP Pulse Ox 97.7 F 96 H 18 114/76 96 05/06/18 12:04 05/06/18 12:00 05/06/18 12:04 05/06/18 12:04 05/06/18 12:00 General appearance: Present: no acute distress, well-nourished - EENT Eyes: Present: PERRL ENT: hearing intact, clear oral mucosa - Neck Neck: Present: supple, normal ROM - Respiratory Respiratory effort: normal Respiratory: bilateral: CTA - Cardiovascular Heart Sounds: Present: S1 & S2. Absent: rub, click - Extremities Extremities: pulses symmetrical, No edema Peripheral Pulses: within normal limits - Abdominal General gastrointestinal: Present: soft, non-tender, non-distended, normal bowel sounds Male genitourinary: Present: normal - Integumentary Integumentary: Present: clear, warm, dry - Musculoskeletal Musculoskeletal: gait normal, strength equal bilaterally - Psychiatric Psychiatric: appropriate mood/affect, intact judgment & insight - Neurologic Neurologic: CNII-XII intact, moves all extremities Plan Activity: no restrictions Diet: low fat, low cholesterol, low salt Follow up with: PRIMARY CARE, [Primary Care Provider] - 3-5 Days
[2018-05-06] MEDS ORDERED: DILANTIN PO SCH (22:00)
== END 2018-05-06 16:53 | disposition home or self-care (01) | DRG 313 ==
LOC: ED 20:39 → 4A 23:50 → EEVIPCON 23:50 → 4A 05-02 09:37 → 3A 05-05 21:10
PROVIDERS: ADMIT Internal Medicine; ATTEND Internal Medicine
DX: R07.89 Other chest pain (principal); Z68.42 Body mass index [BMI] 45.0-49.9, adult; F31.30 Bipolar disorder, current episode depressed, mild or moderate severity, unspecified; E86.0 Dehydration; I10 Essential (primary) hypertension; E11.9 Type 2 diabetes mellitus without complications; E66.01 Morbid (severe) obesity due to excess calories; F41.1 Generalized anxiety disorder; J34.0 Abscess, furuncle and carbuncle of nose; F17.210 Nicotine dependence, cigarettes, uncomplicated; Z71.6 Tobacco abuse counseling; Z82.49 Family history of ischemic heart disease and other diseases of the circulatory system; Z90.49 Acquired absence of other specified parts of digestive tract; Z88.8 Allergy status to other drugs, medicaments and biological substances; Z71.3 Dietary counseling and surveillance; Z59.0 Homelessness
CPT/HCPCS: 36415; 71045; 78452; 80048; 80185; 81001; 82550; 82553; 82962; 84484; 85007; 85025; 85027; 87040; 93005; 93010; 93017; 99406; A9502; J1650; J1815; J2270; J2405; J2785